=== PATIENT | female | born 2005 | race Caucasian/White ===

== ENCOUNTER 2025-06-08 13:33 | Outpatient (CLI) | payer OTHER ==
[~2025-06-08] VITALS: Ht 154.9 cm; Wt 69.4 kg
[2025-06-08 12:43] VITALS: BP 110/68
[2025-06-08] MEDS ORDERED: RINGERS SOLUTION,LACTATED 1,000 ML IV SCH (14:00)
[2025-06-08] MEDS ORDERED: PRENATAL TABLE1 EAC1 PO (14:11)
[2025-06-08 14:30] LABS: BASO % 0.3 % (0.1-1.2); EOS # 0.17 (0.04-0.54); EOS % 1.9 % (0.7-7.0); LYMPH # 2.37 (1.18-3.74); LYMPH % 26.3 % (19.3-53.1); MEAN PLATELET VOLUME 10.70 fl (9.4-12.4); MONO # 1.05 (0.24-0.82); MONO % 11.7 % (4.7-12.5); NEUT # 5.35 (1.56-6.13); NEUT % 59.5 % (34.0-71.1); RED CELL DISTRIBUTION WIDTH 12.6 % (11.6-14.4)
[2025-06-08 14:56] LABS: URINE APPEARANCE Cloudy; URINE BACTERIA 4634.3 uL (0.0-1933); URINE BILIRRUBIN Negative (NEGATIVE); URINE BLOOD Negative; URINE COLOR Yellow; URINE EPITHELIAL CELLS 56.6 uL (0.0-38.8); URINE GLUCOSE Negative (NEGATIVE); URINE KETONE Negative (NEGATIVE); URINE LEUKOCYTE Moderate; URINE NITRATE Negative; URINE PROTEIN Trace (NEGATIVE); URINE RBC 2.0 uL (0.0-20.8); URINE UROBILINOGEN 0.2 E.U./dl; URINE WBC 23.9 uL (0.0-23.2)
[2025-06-08 15:57] VITALS: BP 107/69; O2SAT 100
[2025-06-08 16:09] LABS: URINE CAST 0.58 uL (0.0-1.40)
[2025-06-08 16:10] LABS: URINE EPITHELIAL CELLS 0-4 /HPF
[2025-06-08 19:36] VITALS: BP 109/70
[2025-06-08 23:22] VITALS: BP 120/70
[2025-06-09 00:44] VITALS: BP 120/70
== END 2025-06-08 23:51 | disposition home or self-care (01) ==
LOC: OBS/DEL 13:33
PROVIDERS: ATTEND Specialist
DX: O26.893 Other specified pregnancy related conditions, third trimester (principal); R10.2 Pelvic and perineal pain; O60.03 Preterm labor without delivery, third trimester; Z3A.32 32 weeks gestation of pregnancy

== ENCOUNTER 2025-07-15 16:47 | Inpatient (IN) | payer OTHER ==
[~2025-07-15] VITALS: Ht 154.9 cm; Wt 77.1 kg
[2025-07-15 16:29] VITALS: BP 141/79
[~2025-07-15 16:47] MED LIST: CLINDAMYCIN PHOSPHATE 150 MG/ML (900mg) ONE; PRENATAL TABLE1 EAC1 PO
[2025-07-15] MEDS ORDERED: CLINDAMYCIN PHOSPHATE 900 MG in 0.9 % SODIUM CHLORIDE 100 ML IV SCH (17:00)
[2025-07-15] MEDS ORDERED: RINGERS SOLUTION,LACTATED 1,000 ML IV SCH (17:00)
[2025-07-15 17:44] LABS: URINE APPEARANCE Clear; URINE BILIRRUBIN Negative (NEGATIVE); URINE BLOOD NHT; URINE COLOR Yellow; URINE GLUCOSE Negative (NEGATIVE); URINE KETONE Negative (NEGATIVE); URINE LEUKOCYTE Trace; URINE NITRATE Negative; URINE PROTEIN Negative (NEGATIVE); URINE UROBILINOGEN 0.2 E.U./dl
[2025-07-15 17:48] LABS: URINE BACTERIA 197.8 uL (0.0-1933); URINE EPITHELIAL CELLS 11.0 uL (0.0-38.8); URINE RBC 15.6 uL (0.0-20.8); URINE WBC 12.2 uL (0.0-23.2)
[2025-07-15 17:49] LABS: BASO % 0.1 % (0.1-1.2); EOS # 0.12 (0.04-0.54); EOS % 1.1 % (0.7-7.0); LYMPH # 3.15 (1.18-3.74); LYMPH % 29.4 % (19.3-53.1); MEAN PLATELET VOLUME 11.40 fl (9.4-12.4); MONO # 1.06 (0.24-0.82); MONO % 9.9 % (4.7-12.5); NEUT # 6.36 (1.56-6.13); NEUT % 59.2 % (34.0-71.1); RED CELL DISTRIBUTION WIDTH 12.9 % (11.6-14.4)
[2025-07-15 18:03] LABS: URINE CAST 0.14 uL (0.0-1.40)
[2025-07-15 18:20] LABS: INR < 0.93
[2025-07-15 18:26] LABS: ALT/SGPT 22.0 U/L (12-78); AST/SGOT 22.0 U/L (15-37); BILIRUBIN TOTAL 0.3 mg/dL (0.3-1.2); BUN CREA RATIO 22.0 (7.0-25.0); CREATININE SERUM 0.83 mg/dL (0.55-1.02); GFR 86.78; GLOBULINA 3.6 G/DL (2.4-3.5); GLUCOSE FASTING 82.0 mg/dL (65-100); OSMOLALITY SERUM 280.0 MOSM/KG (275-295)
[2025-07-15 20:04] VITALS: BP 126/81
[2025-07-15] MEDS ORDERED: MORPHINE SULFATE 4 MG/ML CARTRIDGE IV SCH (20:30)
[2025-07-15] MEDS ORDERED: MORPHINE SULFATE 4 MG/ML CARTRIDGE IV PRN (23:30)
[2025-07-15] MEDS ORDERED: OXYTOCIN 20 UNITS/1000ML RL PIGGYBAG IV ONE (23:53)
[2025-07-15] MEDS ORDERED: ERYTHROMYCIN BASE OPHT 1GM EACH TUBE OP ONE (23:53)
[2025-07-15] MEDS ORDERED: LIDOCAINE HCL 1% 10ML VIAL ONE (23:53)
[2025-07-15] MEDS ORDERED: CHLORHEXIDINE GLUCONATE 120 ML BOTTLE TOP ONE (23:53)
[2025-07-16] VITALS (12 sets, daily range): BP systolic 115–136; BP diastolic 46–76
[2025-07-16] MEDS ORDERED: ACETAMINOPHEN 500 MG GEL..CAP PO PRN (01:15)
[2025-07-16] MEDS ORDERED: ERYTHROMYCIN BASE OPHT 1GM EACH TUBE OP ONE (01:15)
[2025-07-16] MEDS ORDERED: LIDOCAINE HCL 1% 10ML VIAL IJ ONE (01:15)
[2025-07-16] MEDS ORDERED: CHLORHEXIDINE GLUCONATE 120 ML BOTTLE TOP ONE (01:15)
[2025-07-16] MEDS ORDERED: OXYTOCIN 1,000 ML IV SCH (01:15)
[2025-07-16 09:27] LABS: BASO % 0.1 % (0.1-1.2); EOS # 0.00 (0.04-0.54); EOS % 0.0 % (0.7-7.0); LYMPH # 1.68 (1.18-3.74); LYMPH % 9.9 % (19.3-53.1); MEAN PLATELET VOLUME 11.50 fl (9.4-12.4); MONO # 1.68 (0.24-0.82); MONO % 9.9 % (4.7-12.5); NEUT # 13.47 (1.56-6.13); NEUT % 79.6 % (34.0-71.1); RED CELL DISTRIBUTION WIDTH 12.9 % (11.6-14.4)
[2025-07-16] MEDS ORDERED: HYDROCORTISONE 2.5% 30 GM TUBE RECTAL SCH (13:00)
[2025-07-16] MEDS ORDERED: BENZOCAINE/MENTHOL 90 ML BOTTLE TOP SCH (13:00)
[2025-07-17 00:55] VITALS: BP 127/81
[2025-07-17 08:00] VITALS: BP 126/78
[2025-07-17 17:13] VITALS: BP 131/82
[2025-07-18] VITALS: BP 107/66
[2025-07-18 09:23] VITALS: BP 112/73
== END 2025-07-18 13:55 | disposition home or self-care (01) | DRG 807 ==
LOC: LDR 16:47 → OB/GYN 07-16 12:57
PROVIDERS: ADMIT Specialist; ATTEND Specialist
PROC: 4A1HXCZ Monitoring of Products of Conception, Cardiac Rate, External Approach (ICD-10-PCS; 2025-07-15)
PROC: 10E0XZZ Delivery of Products of Conception, External Approach (ICD-10-PCS; principal; 2025-07-16)
PROC: 0HQ9XZZ Repair Perineum Skin, External Approach (ICD-10-PCS; 2025-07-16)
DX: O70.0 First degree perineal laceration during delivery (principal); O99.824 Streptococcus B carrier state complicating childbirth; Z37.0 Single live birth; Z3A.38 38 weeks gestation of pregnancy